=== PATIENT | female | born 1995 | race Two or more races ===

== ENCOUNTER 2017-11-26 08:02 | Emergency (ER) | payer OTHER ==
[2017-11-26 08:10] VITALS: TEMP 98.9; BMI 35.6
--- NOTE | 2017-11-26 08:29 | PDOC ---
History of Present Illness - General Chief Complaint: Pain Stated Complaint: ABD PAIN Time Seen by Provider: 11/26/17 08:14 - History of Present Illness Initial Comments: 11/26/17 08:28 22 yo , LMP 10/15/17 with no significant pmh who p/w abdominal pain. Patient reports acute onset intermittent, lower, crampy, abdominal pain x 3 days , consistent with prior menstruation cramping. Pain worse with standing. No identifiable alleviators. Denies analgesia. Patient reports positive at home test earlier this week 11/23/17 and negative at home test yesterday 11/24/17. + h/o dysmennorhea. Patient denies N/V, F/C, CP, SOB, urinary complaints, hematuria, flank pain, vaginal bleeding/itching/burning/discharge, diarrhea, constipation, lightheadedness, weakness, sensory changes. PMHx: as noted above Surgical: None ROS: as noted SHx: Denies tobacco, IVDA. Social Etoh. Sexually active with one male partner. Denies OCP use, contraception, or h/o STI. Allergies: NKDA Past History - Past Medical History Allergies/Adverse Reactions: Allergies Allergy/AdvReac Type Severity Reaction Status Date / Time No Known Allergies Allergy Verified 11/26/17 08:10 Home Medications: Ambulatory Orders NK [No Known Home Medication] 11/26/17 COPD: No - Suicide/Smoking/Psychosocial Hx Smoking History: Never smoked Review of Systems - Review of Systems Comments:: 11/26/17 08:28 GENERAL/CONSTITUTIONAL: No fever or chills. No weakness. HEAD, EYES, EARS, NOSE AND THROAT: No change in vision. No ear pain or discharge. No sore throat. CARDIOVASCULAR: No chest pain or shortness of breath RESPIRATORY: No cough, wheezing, or hemoptysis. GASTROINTESTINAL:+ Abdominal pain. No nausea, vomiting, diarrhea or constipation. GENITOURINARY: No dysuria, frequency, or change in urination. MUSCULOSKELETAL: No joint or muscle swelling or pain. No neck or back pain. SKIN: No rash NEUROLOGIC: No headache, vertigo, loss of consciousness, or change in strength/ sensation. ENDOCRINE: No increased thirst. No abnormal weight change HEMATOLOGIC/LYMPHATIC: No anemia, easy bleeding, or history of blood clots. ALLERGIC/IMMUNOLOGIC: No hives or skin allergy. *Physical Exam - Vital Signs Last Vital Signs Temp Pulse Resp BP Pulse Ox 98.9 F 89 18 104/55 99 11/26/17 08:08 11/26/17 08:08 11/26/17 08:08 11/26/17 08:08 11/26/17 08:08 - Physical Exam Comments: 11/26/17 08:28 GENERAL: Awake, alert, and fully oriented, in no acute distress HEAD: No signs of trauma, normocephalic, atraumatic EYES: PERRLA, EOMI, sclera anicteric, conjunctiva clear ENT: Auricles normal inspection, hearing grossly normal, nares patent, oropharynx clear without exudates. Moist mucosa NECK: Normal ROM, supple, no lymphadenopathy, JVD, or masses LUNGS: No distress, speaks full sentences, clear to auscultation bilaterally HEART: Regular rate and rhythm, normal S1 and S2, no murmurs, rubs or gallops, peripheral pulses normal and equal bilaterally. ABDOMEN: + Suprpapubic ttp. Soft, normoactive bowel sounds. No guarding, no rebound. No masses. Neg CVA ttp. EXTREMITIES : Normal inspection, Normal range of motion, no edema. No clubbing or cyanosis. NEUROLOGICAL: Cranial nerves II through XII grossly intact. Normal speech, normal gait, no focal sensorimotor deficits SKIN: Warm, Dry, normal turgor, no rashes or lesions noted ED Treatment Course - LABORATORY CBC & Chemistry Diagram: 11/26/17 09:20 11/26/17 09:20 Medical Decision Making - Medical Decision Making 11/26/17 09:07 22 yo , LMP 10/15/17 with no significant pmh who p/w abdominal pain. VSS, AF. + Suprpapubic ttp. Evaluate for cystitis and assess for . Will consider PMD. Low suspicion ectopic, ovarian torsion, threatened . Low suspicion more serious GI pathology including appendicitis, colitis, diverticulitis. 11/26/17 09:46 ED Course: CBC, CMP, BHCG 11/26/17 10:22 CBC,CMP: Unremarkable UA: Neg BHCG: Neg Patient stable for d/c with return precautions. Advised to f/u with PMD. *DC/Admit/Observation/Transfer Diagnosis at time of Disposition: Suprapubic pain - Discharge Dispostion Condition at time of disposition: Stable Decision to Admit order: No - Referrals Referrals: Henna Chester MD [Staff Physician] - - Patient Instructions Printed Discharge Instructions: DI for Abdominal Pain-Adult Additional Instructions: Please return to the emergency department with any new or worsening symptoms or concerns. Please follow up with your primary care physician within 72 hours. Please follow up with [facility] within one week. - Post Discharge Activity - Attestations Physician Attestion: 11/26/17 08:29 I attest to the information provided in this note.
[2017-11-26 09:32] LABS: BASO % 0.5 % (0-2.0); EOS % 1.1 % (0-4.5); HEMATOCRIT 37.6 % (32.4-45.2); HEMOGLOBIN 12.4 GM/dL (10.7-15.3); LYMPH % 19.5 % (8-40); MCH 29.3 pg (25.7-33.7); MEAN CELL VOLUME 88.6 fl (80-96); MEAN PLT VOLUME 9.1 fl (7.5-11.1); MONO % 5.9 % (3.8-10.2); PLATELET COUNT 220 K/MM3 (134-434); RBC 4.24 M/mm3 (3.60-5.2); RDW 13.5 % (11.6-15.6); WHITE BLOOD COUNT 6.8 K/mm3 (4.0-10.0)
[2017-11-26 09:49] LABS: ALBUMIN 3.8 g/dl (3.4-5.0); ALK PHOS 66 U/L (45-117); ANION GAP 7 MMOL/L (8-16); BILIRUBIN,TOTAL 0.7 mg/dL (0.2-1.0); BLOOD UREA NITROGEN 14 mg/dL (7-18); CALCIUM 9.1 mg/dL (8.5-10.1); CHLORIDE 107 mmol/L (98-107); CO2 29 mmol/L (21-32); CREATININE 0.7 mg/dL (0.55-1.02); GLUCOSE,RANDOM 85 mg/dL (74-106); POTASSIUM 4.2 mmol/L (3.5-5.1); SGOT/AST 12 U/L (15-37); SGPT/ALT 13 U/L (12-78); SODIUM 143 mmol/L (136-145); TOT PROT 7.5 g/dl (6.4-8.2)
[2017-11-26 09:56] LABS: HCG,QUALITATIVE URINE Negative
[2017-11-26 09:57] LABS: URINE APPEARANCE SLCLOUDY; URINE BILIRUBIN NEGATIVE (<2.0 mg/dL); URINE COLOR YELLOW; URINE GLUCOSE (UA) NEGATIVE (NEGATIVE); URINE KETONE NEGATIVE (NEGATIVE); URINE LEUK ESTERASE NEGATIVE (NEGATIVE); URINE NITRITE NEGATIVE (NEGATIVE); URINE PROTEIN NEGATIVE (NEGATIVE)
[2017-11-26 10:47] VITALS: BP 118/73; PULSE 58
== END 2017-11-26 10:47 | disposition home or self-care (01) ==
LOC: JER 08:02
DX: R10.30 Lower abdominal pain, unspecified (principal)
CPT/HCPCS: 36415; 80053; 81003; 84703; 85025; 87086; 87186; 99282-25